=== PATIENT | male | born 1940 | race African-American/Black ===

== ENCOUNTER 2024-04-09 04:15 | Emergency (ER) | payer MEDICARE, OTHER ==
[~2024-04-09] VITALS: Ht 121.9 cm; Wt 72.6 kg
[2024-04-09 04:23] VITALS: BP 190/94; PULSE 62; RESP 16; TEMP 98.2
[2024-04-09 05:26] LABS: BASOPHILS % (AUTO) 0.8 % (0.0-2.0); EOSINOPHILS # (AUTO) 0.2 K/uL (0-0.4); EOSINOPHILS % (AUTO) 3.4 % (0.0-4.0); HEMATOCRIT 36.5 % (36-52); HEMOGLOBIN 12.1 g/dL (12.0-18.0); LYMPHOCYTES # (AUTO) 1.5 K/uL (2.0-11.5); LYMPHOCYTES % (AUTO) 30.3 % (20.5-51.1); MEAN CORPUSCULAR HEMOGLOBIN 26 pg (27-31); MEAN CORPUSCULAR HGB CONC 33 g/dL (33-37); MEAN CORPUSCULAR VOLUME 78.2 fL (80-94); MONOCYTES # (AUTO) 0.5 K/uL (0.8-1.0); MONOCYTES % (AUTO) 10.4 % (1.7-9.3); NEUTROPHILS # (AUTO) 2.7 K/uL (1.8-7.7); NEUTROPHILS % (AUTO) 55.1 % (42.2-75.2); PLATELET COUNT (AUTO) 153 K/uL (140-450); RED BLOOD CELL COUNT(AUTO) 4.67 MIL/uL (4.20-6.10); RED CELL DISTRIBUTION WIDTH 16.5 % (11.6-13.7); WHITE BLOOD COUNT (AUTO) 4.9 K/uL (4.8-10.8)
[2024-04-09] MEDS: ONDANSETRON 4 MG/2 ML VIAL IVP ONE (05:32)
[2024-04-09] MEDS: MORPHINE SULFATE 2 MG/ML SYR IVP ONE (05:32)
[2024-04-09] MEDS: NITROGLYCERIN 2% 1 GM PKT TP ONE (05:33)
[2024-04-09] MEDS: NIFEdipine 30 MG TABER PO ONE (05:40)
[2024-04-09 05:44] LABS: INR 1.65 (0.8-1.2); PARTIAL THROMBOPLASTIN TIME 30.1 secs (22-35.6); PROTHROMBIN TIME 16.9 secs (10.8-13.4)
[2024-04-09 05:56] LABS: ANION GAP 14.4 (8-16); CALCIUM 9.1 mg/dL (8.5-10.1); CARBON DIOXIDE 25.4 mmol/L (21-32); CHLORIDE 102 mmol/L (98-107); CREATININE 2.5 mg/dL (0.6-1.3); GLUCOSE 106 mg/dL (74-106); POTASSIUM 3.8 mmol/L (3.5-5.1); SODIUM SERUM 138 mmol/L (136-145); UREA NITROGEN, BLOOD 35 mg/dL (7-18)
[2024-04-09 06:15] VITALS: BP 183/81; PULSE 61; RESP 16; TEMP 98.2; O2SAT 97
== END 2024-04-09 06:45 | disposition home or self-care (01) ==
LOC: MED 04:15
DX: R07.9 Chest pain, unspecified (principal); R00.2 Palpitations; I10 Essential (primary) hypertension
CPT/HCPCS: 36415; 71045; 80048; 83880; 84484; 85025; 85610; 85730; 93005; 99285